=== PATIENT | female | born 1995 | race Caucasian/White ===

== ENCOUNTER 2024-05-11 21:17 | Inpatient (IN) | payer OTHER, SELFPAY ==
[2024-05-11 21:40] VITALS: BP 151/103; BMI 31.7
[2024-05-11 21:57] LABS: % Basophils 0.4 % (0-2); % Eosinophils 3.6 % (0-6); % Immature Granulocytes 0.4 % (0-0.5); % Lymphocytes 29.4 % (20.5-51.1); % Monocytes 9.1 % (1.7-9.3); % Neutrophils 57.1 % (42.2-75.2); Absolute Eosinophils 0.2 10^3/uL (0-0.7); Absolute Monocytes 0.6 10^3/uL (0.1-0.6); Absolute Neutrophils 3.8 10^3/uL (1.4-6.5); Hematocrit 36.4 % (37.0-47.0); Hemoglobin 12.3 g/dL (12.0-16.0); Mean Corp Hgb Conc. 33.8 g/dL (33.0-37.0); Mean Corpuscular Hgb 25.3 pg (27.0-31.0); Mean Corpuscular Volume 74.9 fL (81.0-99.0); Mean Platelet Volume 10.3 fL (7.4-10.4); Nucleated Red Blood Cells % 0 %; Platelet Count 156 10^3/uL (130-400); Red Blood Cell Count 4.86 10^6/uL (4.20-5.40); Red Cell Dist. Width 15.1 % (11.5-14.5); White Blood Cell Count 6.7 10^3/uL (4.8-10.8)
[2024-05-11 22:23] LABS: ALT (SGPT) 16 U/L (0-35); AST (SGOT) 26 U/L (14-36); Albumin 3.1 g/dl (3.5-5.0); Alkaline Phosphatase 108 U/L (38-126); Blood Urea Nitrogen 16 mg/dl (7-17); Calcium 9.6 mg/dl (8.4-10.2); Carbon Dioxide 17 mmol/L (22-30); Chloride 108 mmol/L (98-107); Estimated Creatinine Clearance > 125 ml/min; Glucose 89 mg/dl (70-99); Potassium 4.3 mmol/L (3.5-5.1); Sodium 137 mmol/L (135-145); Total Bilirubin 0.1 mg/dl (0.2-1.3); Total Protein 5.4 g/dl (6.3-8.2); eGFR > 60.00
[2024-05-11] MEDS: CYTOTEC 25 MICROGRAM VAG (23:42)
[2024-05-12 01:01] LABS: Protein/creatinine Ratio 9.1; Urine Protein 1191 mg/dl
[2024-05-12] MEDS: LR 1000 IV (04:20)
[2024-05-12] MEDS: CYTOTEC 50 MICROGRAM PO (05:48)
[2024-05-12] MEDS: SUBLIMAZE 100 MCG EPIDURAL (10:25)
[2024-05-12] MEDS: FENTANYL/BUPIVACAINE 100 EPIDURAL (10:25)
[2024-05-12] MEDS: PENICILLIN 110 UNITS IV (10:30)
[2024-05-12] MEDS: PITOCIN 30 UNITS/NSS 500 ML IV (11:45)
[2024-05-12] MEDS: PENICILLIN 55 UNITS IV (13:47)
[2024-05-12] MEDS: TORADOL 15 MG IV (21:24)
[2024-05-12] MEDS: PROCARDIA XL (EXTENDED RELEASE) 30 MG PO (21:34)
[2024-05-13 04:50] LABS: Hematocrit 33.5 % (37.0-47.0); Hemoglobin 11.2 g/dL (12.0-16.0)
[2024-05-13] MEDS: SENOKOT-S 1 TABLET PO (08:14)
[2024-05-13 09:41] LABS: Platelet Count 132 10^3/uL (130-400)
[2024-05-13 10:21] LABS: ALT (SGPT) 17 U/L (0-35); AST (SGOT) 36 U/L (14-36); Albumin 2.9 g/dl (3.5-5.0); Alkaline Phosphatase 114 U/L (38-126); Blood Urea Nitrogen 9 mg/dl (7-17); Calcium 8.6 mg/dl (8.4-10.2); Carbon Dioxide 18 mmol/L (22-30); Chloride 109 mmol/L (98-107); Estimated Creatinine Clearance > 125 ml/min; Glucose 100 mg/dl (70-99); Potassium 4.1 mmol/L (3.5-5.1); Sodium 137 mmol/L (135-145); Total Bilirubin 0.4 mg/dl (0.2-1.3); Total Protein 5.2 g/dl (6.3-8.2); eGFR > 60.00
--- NOTE | 2024-05-13 10:34 | CM ---
CM met with pt and multiple family members at bedside
Offered support to pt/family
Provided with [facility] information
CM will be available to pt/family as needed for additional support as needed
[2024-05-13] MEDS: MOTRIN 600 MG PO (10:56)
[2024-05-13] MEDS: PROCARDIA XL (EXTENDED RELEASE) 30 MG PO (11:00)
[2024-05-13 16:27] LABS: Syphilis/T. pallidum Ab Reflex Negative (Negative)
== END 2024-05-13 13:55 | disposition home or self-care (01) | DRG 807 ==
LOC: LDRP 21:17
PROVIDERS: Obstetrics & Gynecology; Student in an Organized Health Care Education/Training Program; ADMITTING PHYSICIAN Obstetrics & Gynecology; ATTENDING PHYSICIAN Obstetrics & Gynecology; FAMILY PHYSICIAN Physician Assistant Medical
PROC: 10H07YZ Insertion of Other Device into Products of Conception, Via Natural or Artificial Opening (ICD-10-PCS; 2024-05-12)
PROC: 0W8NXZZ Division of Female Perineum, External Approach (ICD-10-PCS; 2024-05-12)
PROC: 10907ZC Drainage of Amniotic Fluid, Therapeutic from Products of Conception, Via Natural or Artificial Opening (ICD-10-PCS; 2024-05-12)
PROC: 3E0E77Z Introduction of Electrolytic and Water Balance Substance into Products of Conception, Via Natural or Artificial Opening (ICD-10-PCS; 2024-05-12)
PROC: 10D07Z6 Extraction of Products of Conception, Vacuum, Via Natural or Artificial Opening (ICD-10-PCS; 2024-05-12)
DX: O48.0 Post-term pregnancy (principal); Z37.0 Single live birth; Z3A.40 40 weeks gestation of pregnancy; O99.824 Streptococcus B carrier state complicating childbirth; O76 Abnormality in fetal heart rate and rhythm complicating labor and delivery; O69.81X0 Labor and delivery complicated by cord around neck, without compression, not applicable or unspecified; O70.1 Second degree perineal laceration during delivery; O13.4 Gestational [pregnancy-induced] hypertension without significant proteinuria, complicating childbirth
CPT/HCPCS: 88307; 36415; 80053; 82570; 84156; 85014; 85018; 85025; 85049; 85460; 86780; 86850; 86900; 86901